=== PATIENT | male | born 1960 | race Caucasian/White ===

== ENCOUNTER → 2019-11-05 | Outpatient (CLI) | payer BC ==
[~2019-11-05] MED LIST: 0.9 % SODIUM CHLORIDE 10 ML DISP.SYRIN. ID ONE; GADOTERATE 5 MMOL/10ML VIAL. INT ART ONE; IOHEXOL 300 MG/ML 50 ML VIAL. INT ART ONE; LIDOCAINE 1% Multi-Dose 20 ML VIAL. IJ ONE; LISI2.5T PO
--- NOTE | 2019-11-05 14:37 | KCIC ---
Study: Fluoroscopically guided arthrogram of the left shoulder joint for MRI Indication: Pain. Labral tear. Contrast: Approximately 2 cc Omnipaque 300; 0.1 cc Dotarem Technique: A timeout was performed prior to beginning the procedure in order to confirm patient identity and laterality of the injection. The risks, benefits and alternatives of the procedure were discussed. Utilizing sterile technique, fluoroscopic guidance and local anesthesia with 1% lidocaine, the left shoulder joint was accessed utilizing a 22-gauge, 3.5" spinal needle. Confirmation of needle position was obtained with a small amount of radiopaque contrast. Subsequently, approximately 12 cc of a mixture containing 5 cc lidocaine, 10 cc saline and 0.1 cc Dotarem was injected. There were no immediate post procedure complications. Fluoroscopy time: 27 seconds Number of images obtained: 1 Impression: Technically successful fluoroscopic guided arthrogram of the left shoulder joint without immediate postprocedure complication. Electronically signed by: NIRAJ UMANA MD (11/05/2019 2:34 PM) [id number]
--- NOTE | 2019-11-05 16:25 | KCIC ---
STUDY: MRI arthrogram of the left shoulder INDICATION: Labral tear. Pain and decreased range of motion in the setting of a fall injury. COMPARISON: Left shoulder radiographs 10/24/2019 TECHNIQUE: Multiplanar MR imaging of the left shoulder performed after the intra-articular injection of contrast material. The injection portion of the procedure is detailed in a separate report. FINDINGS: AC joint: Moderate AC joint arthrosis with distal clavicular edema. Edematous joint/joint capsule and faintly of the periarticular soft tissues. No gadolinium-containing fluid seen within the subacromial subdeltoid bursa. Small subacromial traction spur at the coracoacromial ligament insertion which mildly contacts the subjacent supraspinatus, image 10 series 6. Rotator cuff: Low-grade bursal sided fraying of the mid supraspinatus at and just lateral to the subacromial spur, image 9 series 2. This is occurring at the critical zone approximately 1.8 cm medial to the footprint. No high-grade or full-thickness rotator cuff tear. Normal rotator cuff muscular bulk and signal. Labrum: SLAP tear extending to the posterior/superior labrum. Small associated paralabral cyst posterior/superior that increases in size on the ABER sequence Long head biceps tendon: Mild intra-articular long head biceps tendinosis. The SLAP tear extends a short distance into the long head biceps tendon, images 12 and 13 series 5. Cartilage: No full-thickness defect. Bones: No acute fracture. Miscellaneous: Unremarkable axillary soft tissues. Impression: 1. SLAP tear that extends a short distance into the long head biceps tendon. Propagation of the tear to the posterior/superior labrum where there is a small paralabral cyst. Superimposed mild intra-articular long head biceps tendinosis. 2. Low-grade bursal sided fraying of the mid supraspinatus at the critical zone subjacent to a small subacromial traction spur at the coracoacromial ligament attachment. No high-grade or full-thickness rotator cuff tear. 3. Moderate AC joint arthrosis in addition to distal clavicular edema. No findings definitive of distal clavicular osteolysis at this time but if there are overuse tendencies developing osteolysis should be considered. Electronically signed by: NIRAJ UMANA MD (11/05/2019 4:22 PM) [place] [id number]
== END | disposition home or self-care (01) ==
LOC: KCIC 12:54
PROVIDERS: ATTEND Physician Assistant
DX: S43.432A Superior glenoid labrum lesion of left shoulder, initial encounter (principal); S43.492A Other sprain of left shoulder joint, initial encounter; M19.012 Primary osteoarthritis, left shoulder; W19.XXXA Unspecified fall, initial encounter; Y93.89 Activity, other specified; Y92.89 Other specified places as the place of occurrence of the external cause; Y99.8 Other external cause status
CPT/HCPCS: 23350; 73040; 73222; A9575; J3490; Q9967; 77002

== ENCOUNTER → 2020-12-04 | Outpatient (CLI) | payer BC ==
[~2020-12-04] MED LIST changes: -0.9 % SODIUM CHLORIDE 10 ML DISP.SYRIN. ID ONE; -GADOTERATE 5 MMOL/10ML VIAL. INT ART ONE; -IOHEXOL 300 MG/ML 50 ML VIAL. INT ART ONE; -LIDOCAINE 1% Multi-Dose 20 ML VIAL. IJ ONE; +LISI10TA16 PO; -LISI2.5T PO; +LISI2.5T12 PO; +LORA-434 PO; +OXYC10TA46 PO; +OXYC1TAB22 PO; +WARF4TAB64 PO
== END ==
LOC: LAB 14:02
PROVIDERS: ATTEND Orthopaedic Surgery
DX: Z01.812 Encounter for preprocedural laboratory examination (principal); Z20.822 Contact with and (suspected) exposure to COVID-19
CPT/HCPCS: U0003; U0005

== ENCOUNTER 2020-12-08 06:28 | Day surgery (SDC) | payer BC ==
[~2020-12-08] VITALS: Ht 170.2 cm; Wt 92.0 kg
[~2020-12-08 06:28] MED LIST changes: +IV RINGERS,LACTATED 1000ML 1,000 ML IV SCH; +MORPHINE SULFATE 2 MG/ML INJ. IVP PRN; -OXYC10TA46 PO; +PROCHLORPERAZINE 10 MG/2 ML VIAL. IVP PRN; +fentaNYL PF VIAL 100 MCG/2 ML VIAL IVP PRN
[2020-12-08] MEDS ORDERED: BUPIVACAINE MPF 0.5% 30 ML VIAL. ONE (06:57)
[2020-12-08] MEDS ORDERED: MIDAZOLAM HCL/PF 2 MG/2 ML VIAL. ONE (06:57)
[2020-12-08] MEDS ORDERED: EPINEPHrine VIAL 30 MG/30 ML VIAL ONE (07:24)
--- NOTE | 2020-12-08 07:25 | DISCH ---
DISCHARGE INSTRUCTIONS Condition on Discharge Condition on Discharge: Stable Activity After Discharge Activity Instructions for Disc: Other, see below (5 pound elbow flexion limit to protect the biceps tenodesis repair, otherwise full range of motion of shoulder immediately) Weight Bearing Status after Di: As tolerated Diet after Discharge Diet after Discharge: Regular Wound Incision Care Wound/Incision Care: Ice to area for comfort, Change dressing (Remove dressing in 2 days may then shower no soaking until sutures removed) Community/Resources/Services Services at Discharge: PT EVALUATE & TREAT (Immediate active and passive shoulder motion and strengthening with 5 pound elbow flexion limit to protect biceps tenodesis) Contacting the after DC Call your doctor for: Concerns you may have Follow-Up Follow up with: Dr. Street or Nick 7 to 10 days Warfarin Follow-Up Warfarin Follow UP: Continue warfarin as previous home medication dose, start immediately FRANKO STREET MD Dec 08, 2020 07:25
[2020-12-08] MEDS ORDERED: DEXAMETHASONE SOD PHOS 4 MG/ML VIAL ONE (07:26)
[2020-12-08] MEDS ORDERED: fentaNYL PF VIAL 100 MCG/2 ML VIAL ONE ×3 (07:26→10:36)
[2020-12-08] MEDS ORDERED: LIDOCAINE 2% PF 5 ML VIAL. ONE (07:26)
[2020-12-08] MEDS ORDERED: ONDANSETRON PF 4 MG/2 ML VIAL. ONE (07:26)
[2020-12-08] MEDS ORDERED: PROPOFOL 10 MG/ML (20ML) VIAL. IV ONE (07:26)
[2020-12-08] MEDS ORDERED: ROCURONIUM 50 MG/5 ML VIAL. ONE (07:27)
[2020-12-08] MEDS ORDERED: KETAMINE HCL IN NACL, ISO-OSM 50 MG/5 ML SYRINGE ONE (07:40)
[2020-12-08] MEDS ORDERED: BUPIVACAINE-EPI 0.5% 30 ML VIAL KIT. ONE (08:49)
[2020-12-08] MEDS ORDERED: GLYCOPYRROLATE 1 MG/5 ML VIAL. ONE (09:13)
[2020-12-08] MEDS ORDERED: NEOSTIGMINE METHYLSULFATE 5 MG/5 ML SYRINGE. ONE (09:13)
[2020-12-08] MEDS ORDERED: HYDROmorphone 2 MG/ML VIAL ONE (09:41)
[2020-12-08] MEDS: HYDROmorphone 2 MG/ML VIAL IVP PRN ×4 (09:43→10:19)
[2020-12-08] MEDS: fentaNYL PF VIAL 100 MCG/2 ML VIAL IVP PRN ×3 (09:49→10:39)
[2020-12-08] MEDS ORDERED: ROPIVacaine 0.5% PF 20 ML VIAL. ONE (10:01)
[2020-12-08] MEDS ORDERED: oxyCODONE/APAP 10/325 1 TAB TABLET PO ONE (10:15)
[2020-12-08 10:50] VITALS: BP 155/95
[2020-12-08] MEDS ORDERED: OXYC10TA46 PO (11:25)
--- NOTE | 2020-12-08 15:31 | PDOC4 ---
Operative Note Operative Note Date of surgery: 12/08/2020 Preoperative diagnosis: Left shoulder SLAP tear and acromioclavicular arthralgia Postoperative diagnosis: Same with large anterior acromial spur and biceps anchor compromise Operative procedure: Left shoulder arthroscopy labral debridement biceps tenodesis subacromial decompression and distal clavicle excision Surgeon: Yenifer Assist: Pk stacy Anesthesia: General plus scalene block Estimated blood loss: 10 cc Complications: None Operative indications: Please see my preoperative orthopedic clinic note for detailed operative indications and note that we had discussed the presence of a SLAP tear and significant acromioclavicular arthralgia and that likely these would be addressed with biceps tenodesis labral debridement and distal clavicle excision along with addressing any other pathological conditions present. We had discussed the risks of surgery including infection nerve or blood vessel damage continued pain medical other anesthetic complications among others and the typical restrictions and recovery process. All his questions were answered he wishes to proceed with surgical evaluation and treatment Operative text: Patient was identified procedure verified patient placed in the supine position on the operating table. After adequate amounts of general anesthesia plus a pre-existing scalene block were obtained he was placed decubitus position left side up all bony promises were well-padded and the shoulder was examined under anesthesia found to have full range of motion no instability. The left shoulder was then prepped and draped in standard sterile fashion and after timeout was performed patient procedure identified and verified a standard posterior portal was established. An anterior portal was established under spinal needle localization and the shoulder joint was systematically examined. Rotator cuff insertion was noted to be intact including the subscapularis supraspinatus infraspinatus and a normal bare area of the humerus capsuloligamentous structures noted to be in good condition as was the glenohumeral joint cartilage. He had significant labral fraying involving the entire superior arc of the labrum and following debridement was noted to have an unstable labral anchor with a type II SLAP tear. Biceps was tenotomized and tagged and labrum was debrided back to stable tissue. Subacromial space was then entered bursa was cleared to allow visualization and a large anterior acromial spur was noted and converted to a type I acromion with an arthroscopic bur. Distal clavicle was noted as expected to have very narro wed arthritic changes and was excised 1 cm to allow a joint space of about 12 mm preserving the overlying joint capsule for stability. Bony fragments were evacuated with the arthroscopic shaver and biceps tenodesis was carried out by whipstitching the biceps through the anterior portal unroofing of the bicipital groove. Biceps was then tensioned and fastened into bicipital groove with a [employer] peek interference screw. Excellent fixation was carried out with good tension maintaining the normal biceps contour. Joint was drained of arthroscopic fluid portals closed with nylon suture sterile dressings were applied patient was placed in a sling. Returned to recovery room in stable condition having tolerated procedure well. Pk guardado assist was present for the procedure assisted in patient positioning prepping draping retraction closure and dressings FRANKO SOMMERS MD Dec 08, 2020 15:31
== END 2020-12-08 11:33 | disposition home or self-care (01) ==
LOC: SURG 06:28
PROVIDERS: ATTEND Orthopaedic Surgery
DX: S43.432A Superior glenoid labrum lesion of left shoulder, initial encounter (principal); M19.012 Primary osteoarthritis, left shoulder; I10 Essential (primary) hypertension; G47.30 Sleep apnea, unspecified; E66.9 Obesity, unspecified; Z79.899 Other long term (current) drug therapy; Z98.890 Other specified postprocedural states; X58.XXXA Exposure to other specified factors, initial encounter; Y93.89 Activity, other specified; Y92.89 Other specified places as the place of occurrence of the external cause; Y99.8 Other external cause status
CPT/HCPCS: 29824; 29828; 64415; A4930; C1713; J0171; J0690; J1100; J1170; J2250; J2405; J2704; J2710; J2795; J3010; J3490

== ENCOUNTER → 2021-02-10 | Outpatient (CLI) | payer BC ==
[~2021-02-10] MED LIST changes: -IV RINGERS,LACTATED 1000ML 1,000 ML IV SCH; -MORPHINE SULFATE 2 MG/ML INJ. IVP PRN; +OXYC10TA46 PO; -PROCHLORPERAZINE 10 MG/2 ML VIAL. IVP PRN; -fentaNYL PF VIAL 100 MCG/2 ML VIAL IVP PRN
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
== END | disposition home or self-care (01) ==
LOC: PNCL 13:36
PROVIDERS: ATTEND Anesthesiology
DX: M54.50 Low back pain, unspecified (principal); M79.605 Pain in left leg; M19.90 Unspecified osteoarthritis, unspecified site; I10 Essential (primary) hypertension; G47.30 Sleep apnea, unspecified; E66.9 Obesity, unspecified; Z86.711 Personal history of pulmonary embolism; Z79.01 Long term (current) use of anticoagulants; Z79.899 Other long term (current) drug therapy; Z98.890 Other specified postprocedural states
CPT/HCPCS: 99214; G0463